=== PATIENT | male | born 1975 | race Hispanic/Latino ===

== ENCOUNTER → 2019-12-23 | Day surgery (SDC) | payer BC, OTHER ==
[~2019-12-23] MED LIST: CEFAZOLIN SOD 1 GM/NS 50ML 100 ML IV ONE; DEXAMETHASONE SOD PHOS INJ 4 MG/ML VIAL ONE; EPINEPHRINE HCL 1:1000 1ML 1 MG/ML AMP ONE; FENTANYL CITRATE/PF 100MCG/2 ML INJ ONE; GLYCOPYRROLATE INJ 0.2 MG/ML VIAL ONE; KETOROLAC TROMETHAMINE 30 MG/ML VIAL ONE; LIDOCAINE 2%/ EPINEPHRINE 20ML MDV ONE; LIDOCAINE HCL 1% LOCAL INJ 20 ML VIAL ONE; LIDOCAINE HCL 2% LOCAL INJ 5 ML SDV VIAL INJ ONE; MIDAZOLAM HCL 2 MG/2 ML VIAL ONE; NEOSTIGMINE 1 MG/ML 10ML VIAL ONE; ONDANSETRON HCL INJ 2MG/ML 2ML 2 MG/ML VIAL ONE; PROPOFOL IV EMULSION 10 MG/ML 20 ML VIAL ONE; ROCURONIUM BROMIDE 10 MG/ML 5ML VIAL IV ONE; SEVOFLURANE INHAL SOLN 250 ML PEN BTL ONE; VALACYCLOVIR500 MG PO
[2019-12-23 14:40] VITALS: BP 122/70
--- NOTE | 2019-12-29 17:41 | Operative Report ---
DATE OF PROCEDURE: 12/23/2019 SURGEON: Parker Armando MD PREOPERATIVE DIAGNOSES: 1. Umbilical hernia. 2. Lipodystrophy of abdomen. ANESTHESIA: General. ESTIMATED BLOOD LOSS: Minimal. PROCEDURES: 1. Umbilical hernia repair, primary, reducible. 2. Liposuction of abdomen. CONDITION IN RECOVERY: Stable, extubated. POSTOPERATIVE PLAN: Discharge to home. PROCEDURE IN DETAIL: The patient was identified and marked in the preoperative holding area. Preoperative antibiotics were given. SCDs were placed. The abdomen was prepped and draped in sterile fashion. I made a semicircular incision around the superior aspect of the umbilicus. I then dissected down through the subcutaneous tissue. At this point, I encountered the umbilical hernia defect. There was peritoneal fat herniating through the defect. I the hernia and hernia sac from the edges of the fascia. I then performed high ligation of the sac and used Bovie cautery to remove the excess. The remainder of the tissue was then reduced through the hernia defect. I ensured that the underside of the fascia was clear. I then approximated with interrupted figure of eight 0 PDS sutures followed by an imbricated suture with 2-0 Vicryl. The remainder of the incision was then closed with 3-0 Vicryl and 3-0 Monocryl. Next, I made small access incision in the lower abdomen and infiltrated the subcutaneous tissues with tumescent solution. Solution consisted of 1 L of crystalloid with 1 amp of epi and 50 mL of 1% lidocaine. After allowing 15 minutes for this to take effect, I proceeded with liposuction. I used 4 mm Rhonda tip cannula for the deeper fat and then transitioned 2-3 mm as I got more superficial. I used the separate incisions to crosshatch the areas of liposuction and continued till there was a smooth contour and that the quality of aspirate had turn somewhat bloody. The access incisions were then closed with 4-0 Monocryl. All counts were correct. The patient tolerated the procedure. Parker Armando MD SB/MODL /[id number]
== END | disposition home or self-care (01) ==
LOC: OR 11:20
PROVIDERS: ATTEND Specialist
DX: K42.9 Umbilical hernia without obstruction or gangrene (principal); E88.1 Lipodystrophy, not elsewhere classified; Z01.810 Encounter for preprocedural cardiovascular examination; Z01.812 Encounter for preprocedural laboratory examination; Z11.59 Encounter for screening for other viral diseases
CPT/HCPCS: 15877; 49585; 93005; J0171; J0690; J1100; J1885; J2001 ×3; J2250; J2405; J2704; J2710; J3010; U0002